=== PATIENT | male | born 1965 | race Caucasian/White ===

== ENCOUNTER 2019-04-04 16:39 | Emergency (ER) | payer SELFPAY ==
[~2019-04-04] VITALS: Ht 175.3 cm; Wt 63.5 kg
--- NOTE | 2019-04-04 16:45 | ED General ---
General Stated Complaint: SEIZURE History of Present Illness Date Seen by Provider: Apr 04, 2019 Time Seen by Provider: 16:44 Initial Comments The girlfriend that is with him states that he had seizure last night and also 2 today. These were short periods, but associated with LOC. He has been out of his ativan for 2 weeks. He describes onset of seizure 3 years ago. Immediately placed on lamictal and ativan, which seems to be outlier medication for prophylasis or primary management. He did not see neurologist. He currently gets his medication prescribed from [facility] in [place]. The bottle shows PRN for the ativan TID. On query however, he says he was instructed to take it TID regularly. I asked whether he drinks and he drinks 6-12 pack of beer daily. Last drank yesterday. He is not post-ictal now. He has slight tremor but no evidence of DTs. I discussed all of these and stated that this is not standard prophylaxis for seizures, and that he should get this clarified. Rescue for seizures for ativan however may be appropriate. Further, he might even have withdrawal if he has dependence on ativan and is now out of this. I recommended filling ativan script for the weekend, then he can contact his [employer] on Saturday. Since I don't have detailed records, I cannot confirm any of this. They express satisfaction with this solution and will appropriately follow-up. Allergies and Home Medications Allergies Coded Allergies: cephalexin (Verified Allergy, Severe, Anaphylaxis, 04/04/19) ciprofloxacin (Verified Adverse Reaction, Unknown, 04/04/19) zolpidem (Verified Adverse Reaction, Unknown, 04/04/19) DELUSIONS Home Medications Lorazepam 2 Mg Tablet, 2 MG PO TID Prescribed by: SHAY VILLA on 04/04/19 8960 Patient Home Medication List Home Medication List Reviewed: Yes Review of Systems Review of Systems Constitutional: malaise EENTM: no symptoms reported Respiratory: no symptoms reported Cardiovascular: no symptoms reported Gastrointestinal: no symptoms reported Genitourinary: no symptoms reported Musculoskeletal: no symptoms reported Skin: no symptoms reported Psychiatric/Neurological: Seizure Hematologic/Lymphatic: No Symptoms Reported Immunological/Allergic: no symptoms reported All Other Systems Reviewed Negative Unless Noted: Yes Physical Exam Vital Signs Vital Signs - First Documented 04/04/19 16:49 Temp 97.5 Pulse 97 Resp 18 B/P (MAP) 142/84 (103) Pulse Ox 99 O2 Delivery Room Air Capillary Refill : Height, Weight, BMI Height: '" Weight: lbs. oz. kg; BMI Method: General Appearance: No Apparent Distress HEENT: Normal ENT Inspection, Moist Mucous Membranes Neck: Full Range of Motion, Normal Inspection, Supple Respiratory: No Accessory Muscle Use, No Respiratory Distress Cardiovascular: Regular Rate, Rhythm, No Murmur Back: Normal Inspection Extremity: Normal Inspection, Normal Range of Motion Neurologic/Psychiatric: Alert, Oriented x3, Other Skin: Normal Color, Warm/Dry Lymphatic: No Adenopathy Progress/Results/Core Measures Suspected Sepsis SIRS Temperature: Pulse: Respiratory Rate: Blood Pressure / Mean: Results/Orders My Orders Orders - SHAY CASSIDY MD Lorazepam Tablet (Ativan Tablet) (04/04/19 16:57) Vital Signs/I&O 04/04/19 04/04/19 16:49 17:14 Temp 97.5 97.5 Pulse 97 91 Resp 18 18 B/P (MAP) 142/84 (103) 123/80 (94) Pulse Ox 99 97 O2 Delivery Room Air Capillary Refill : Departure Impression Primary Impression: Seizure Disposition: 01 HOME, SELF-CARE Condition: Stable Departure-Patient Inst. Referrals: NO,LOCAL PHYSICIAN (PCP/Family) Primary Care Physician Scripts Lorazepam (Ativan) 2 Mg Tablet 2 MG PO TID for Seizure Activity for 3 Days, #10 TAB 0 Refills Prov: SHAY CASSIDY MD 04/04/19 SHAY CASSIDY MD Apr 04, 2019 16:45
[2019-04-04] MEDS ORDERED: LORazepam 0.5 MG (ATIVAN) TABLET PO STA (16:57)
[2019-04-04] MEDS ORDERED: LORA-407 PO (17:12)
[2019-04-04 17:14] VITALS: BP 123/80
== END 2019-04-04 17:20 | disposition home or self-care (01) ==
LOC: ER FS 16:41
DX: R56.9 Unspecified convulsions (principal); Z88.1 Allergy status to other antibiotic agents; Z88.8 Allergy status to other drugs, medicaments and biological substances
CPT/HCPCS: 99283